=== PATIENT | male | born 1955 | race Caucasian/White ===

== ENCOUNTER 2018-07-05 10:46 | Outpatient (CLI) | payer BC, SELFPAY ==
[2018-07-05 13:19] LABS: ALT 39 U/L (12-78); AST 29 U/L (15-37); Albumin 4.1 g/dL (3.4-5.0); Alkaline Phosphatase 66 U/L (46-116); BUN 16 mg/dL (7-18); Bilirubin, Total 0.4 mg/dL (0.2-1.0); CREATININE 1.06 mg/dL (0.70-1.30); Calcium 9.3 mg/dL (8.5-10.1); Chloride 103 mmol/L (98-107); Cholesterol 178 mg/dL (50-200); Glucose 101 mg/dL (70-100); HDL Cholesterol 59 mg/dL (40-60); LDL CHOLESTEROL 104 mg/dL (<100); Potassium 4.4 mmol/L (3.5-5.1); Sodium 137 mmol/L (136-145); Triglyceride 104 mg/dL (30-150)
== END 2018-07-05 11:06 ==
LOC: LBO 11:54 → LOS 11:56
PROVIDERS: PCP Family Medicine; Visit Provider Family Medicine
DX: Z00.00 Encounter for general adult medical examination without abnormal findings (principal); Z13.220 Encounter for screening for lipoid disorders; Z13.228 Encounter for screening for other metabolic disorders
CPT/HCPCS: 36415; 80053; 80061; 83721

== ENCOUNTER 2018-11-05 16:09 | Emergency (ER) | payer BC, SELFPAY ==
[2018-11-05] VITALS (24 sets, daily range): BP systolic 148–180; BP diastolic 68–108; PULSE 68–97; RESP 15–18; TEMP 36.6–37; O2SAT 89–98
--- NOTE | 2018-11-05 16:48 | DI.CT_ITS ---
SYMPTOM/DIAGNOSIS: KICKED BY HORSE RT SIDE, PAIN CHEST, ABDOMEN AND PELVIC CT: CT scan of the chest, abdomen and pelvis was performed following the uneventful administration of intravenous contrast material. No priors for comparison. ABDOMEN AND PELVIS: The liver, spleen, pancreas, gallbladder, bile ducts and adrenal glands are unremarkable. The portal and superior mesenteric veins are patent. The kidneys are unremarkable. The urinary bladder is intact. The reproductive organs are unremarkable. The bowel is unremarkable. There is no evidence of an acute appendicitis. The abdominal aorta is of normal caliber. No aneurysmal dilatation is seen. No abdominal or pelvic adenopathy, ascites or pneumoperitoneum is present. No fractures are identified. Degenerative changes are seen in the spine. IMPRESSION: No evidence of abdominal or pelvic organ injury. No acute fracture is seen. CHEST: There are a few tiny hypodensities in the thyroid gland. These may be further evaluated with thyroid ultrasound on a non emergent basis. The thoracic aorta is intact and normal caliber. Heart size is within normal limits. No significant pericardial effusion is seen. No significant thoracic adenopathy is present. No pleural effusion or pneumothorax is identified. No infiltrates are seen. There is a nondisplaced fracture involving the lateral aspect of the right eighth rib. No other fracture is seen. Degenerative changes are seen in the spine. IMPRESSION: Nondisplaced fracture involving the lateral aspect of the right eighth rib.
--- NOTE | 2018-11-05 16:53 | ED.GENADUL_ITS ---
Discharge Plan Disposition Patient Disposition: HOME Condition: Fair Discharge Details Chief Complaint: Chest/Rib Clinical Impression: Fracture of rib, Allergic reaction Primary Care Provider: Gay Rg ED Provider: Cammy Nichols Home Meds and New Rx's Prescriptions: New prednisone 20 mg tablet 40 mg PO DAILY Qty: 8 RF: 0 Continued glucosamine-chondroitin 900 mg tablet See Patient Comments PO BID RF: 0 Proventil HFA 90 mcg/actuation HFA aerosol inhaler 2 puff IH Q4H PRN (Reason: shortness of breath or wheezing) Qty: 8.5 RF: 4 amlodipine 10 mg tablet 10 mg PO DAILY Qty: 90 RF: 4 doxazosin 1 mg tablet 1 mg PO DAILY Qty: 90 RF: 4 ibuprofen 200 MG tablet 2 - 3 tab PO PRN RF: 0 multivitamin [Daily Multi-Vitamin] 1 EACH tablet 2 ea PO DAILY RF: 0 omeprazole 20 MG tablet,delayed release (DR/EC) 20 mg PO DAILY RF: 0 fluorometholone 15 ML drops,suspension 1 drp OU DAILY PRNRF: 0 metoprolol succinate 200 mg tablet extended release 24 hr 200 mg PO DAILY Qty: 90 RF: 4 Discharge Instructions Instructions: Rib Fracture (ED), General Allergic Reaction (ED) Additional Instructions: You have fractured your #8 rib on the right side. Encourage hydration. Encourage deep breathing. Use incentive spirometer as advised by nursing staff. Tylenol and/or Motrin as needed for discomfort. Splinting as discussed if coughing. You may try topical options such as Salonpas patches or Lidoderm patches to help with discomfort. You appear to have had reaction to Morphine while here. Please take steroids as prescribed, even if symptoms do not recur please take entire course. If you d evelop fevers/chills, difficulty breathing, rash, shortness of breath or other new/worsneing symptoms please seek care urgently once again. Please follow up with primary care at the end of the week for reevaluation, call tomorrow morning to schedule appointment. Referrals: Gay Rg MD, [place] [Primary Care Provider] - Medical Decision Making Patient is 63-year-old male, accompanied by his , chief complaint of getting kicked in the right side of his lower ribs by a horse. He reports that he was trying to eat a horse outside and her suddenly kicked back striking him in the side. He states that he was immediately short of breath and noted to take him a while to get up from the ground secondary to the shortness of breath. Reports that this happened approximately 4 hours prior to arrival. Denies any abdominal pain. Denies any syncope or loss of consciousness. Denies any headache. Denies any pain in his neck or his back. Denies other injury at the time of the incident. He reports that he was able to continue with his chores but then when his saw her uncomfortable here. She advised to bring him to the emergency department. He is taking 400 mg of ibuprofen since the injury with little relief. Reports that the shortness of breath is improving On exam, patient does appear uncomfortable and is guarding the right side. His lungs are clear. I do feel swelling over the right inferior ribs. He also endorses pain with palpation over the right upper quadrant. No CVA tenderness. Full range of motion of the neck, no midline tenderness over the spine. No respiratory distress. Patient has history of right shoulder surgery, low back pain, cervical spondylosis, GERD, hypertension. He endorses chronic weakness in the right upper extremity which she associates with his previous shoulder surgeries but denies any acute change in this or any acute pain in the right upper extreme Given the mechanism of injury, I feel that imaging is appropriate, we will obtain CT of the patient's chest, abdomen and pelvis. Discussed this plan with the patient who is in agreement FINDINGS: Lungs: Normal. No consolidation. No masses. Pleural space: Normal. No pneumothorax. No pleural effusion. Heart: Normal. No cardiomegaly. No pericardial effusion. Aorta: Normal. No aortic aneurysm. Lymph nodes: Unremarkable. No enlarged lymph nodes. Bones/joints: Nondisplaced fracture the lateral aspect of the right eighth rib. Soft tissues: Unremarkable. IMPRESSION: Nondisplaced fracture the lateral aspect of the right eighth rib. FINDINGS: Lower thorax: No acute findings. ABDOMEN: Liver: Unremarkable. No mass. Gallbladder and bile ducts: Unremarkable. No calcified stones. No ductal dilation. Pancreas: Unremarkable. No ductal dilation. Spleen: Unremarkable. No splenomegaly. Adrenals: Normal. No mass. Kidneys and ureters: Unremarkable. No stones. No hydronephrosis. Stomach and bowel: Unremarkable. No obstruction. No mucosal thickening. Appendix: No evidence of appendicitis. PELVIS: Bladder: Unremarkable as visualized. Reproductive: Unremarkable as visualized. ABDOMEN and PELVIS: Intraperitoneal space: Unremarkable. No free air. No significant fluid collection. Bones/joints: Degenerative spondylosis of the lumbar spine. No acute fracture. Soft tissues: Unremarkable. Vasculature: Unremarkable. No abdominal aortic aneurysm. Lymph nodes: Unremarkable. No enlarged lymph nodes. IMPRESSION: No acute abnormality. AFter coming back from CT, patient is shaky. No rash, no itching, no SOB, no CP. States he feels warm but is objectively shaky. Concerned for possible reaction to dye vs. morphine. Will give IV Benadryl and continue to monitor. Face is very flushed, lungs are clear, no rash. While nurses was prepping to give patient his Benadryl, he began appearing red, more shaky, diaphoretic and afraid. Concerned for worsening reaction. Will give SC epi. Patient improved shortly after epi. Giving zantac and solu-medrol. Discussed symptoms further with patient. He reports that it began just prior ot CT, this makes me more concerned it was the morphine vs. the IV contrast. Advised against this in the future. Patient appears very fatigued, likely associated with Benadryl. He is no longer shaky, skin has returned to baseline. O2 dropped when patient began to fall asleep to 88% RA. He denies SOB, lungs remain clear. Placed on 1LNC with good response. Lidoderm patch applied to hlep with rib discomfort. Patient able to come off of NC, O2 at 94% RA. He is requesting discharge. Will keep in department to continue to monitor after reaction. Nursing staff will teach IS usage. Patient monitored after reaction, no signs of recurrence. He lives locally, they are able to return with new/worsening symptoms. He iwll continue with prednisone as prescribed. Advised close f/u with PCP, will call tomorrow. Tylenol and/or Motrin as needed for discomfort, discussed topical options to help with discomfort. Discussed care for rib fracture and when to seek care for this. All of their questions and concerns were addressed, they are in agreement with this plan. HPI General Mode of arrival: ambulatory . Date/Time Provider Initiated Documentation: 11/05/18 16:34 . Limitations to Documentation: no limitations . Information obtained by: patient and family . History of Present Illness 63 year old M presents to the emergency department with the chief complaint of right sided chest pain, described as moderate, Quality is described as aching, and is localized to the chest. Patient abdomen. Patient started experiencing this hour(s) (4.5) and it has been constant. Immobilization improves symptom(s), Movement worsens symptoms and Other factors that worsen symptoms (deep inspiration) . Patient notes shortness of breath; denies cough, fever/chills, headaches, nausea/vomiting, rash, syncope and weakness. Patient did receive the following treatments prior to arrival, NSAID Related Data Home Medications Medication Instructions Recorded Confirmed ibuprofen 2 - 3 tab PO PRN 04/04/13 11/05/18 multivitamin [Daily Multi-Vitamin] 2 ea PO DAILY 07/17/14 11/05/18 omeprazole 20 mg PO DAILY 07/17/14 11/05/18 fluorometholone 1 drp OU DAILY PRN drp 05/16/16 11/05/18 albuterol sulfate HFA 90 2 puff IH Q4H PRN #8.5 gm 07/05/18 11/05/18 mcg/actuation aerosol inhaler amlodipine 10 mg tablet 10 mg PO DAILY #90 tab 07/05/18 11/05/18 antiarthritic combination no.2 900 See Rx Instructions PO BID tab 07/05/18 11/05/18 mg tablet doxazosin 1 mg tablet 1 mg PO DAILY #90 tab 07/05/18 11/05/18 metoprolol succinate ER 200 mg 200 mg PO DAILY #90 tab 10/18/18 11/05/18 tablet,extended release 24 hr prednisone 40 mg PO DAILY #8 tab 11/05/18 Previous Rx's Medication Instructions Recorded albuterol sulfate HFA 90 2 puff IH Q4H PRN #8.5 gm 07/05/18 mcg/actuation aerosol inhaler amlodipine 10 mg tablet 10 mg PO DAILY #90 tab 07/05/18 doxazosin 1 mg tablet 1 mg PO DAILY #90 tab 07/05/18 metoprolol succinate ER 200 mg 200 mg PO DAILY #90 tab 10/18/18 tablet,extended release 24 hr prednisone 40 mg PO DAILY #8 tab 11/05/18 Allergies Allergy/AdvReac Type Severity Reaction Status Date / Time morphine Allergy Shaking Unverified 11/05/18 18:34 General Stated Complaint: Chest/Rib LULA: 2 Review of Systems Constitutional Reports as per HPI, Denies chills, Denies fatigue, Denies fever(s), Denies headache(s) and Denies weakness Eyes Reports as per HPI, Denies blurry vision, Denies change in vision and Denies loss of vision ENT Denies headache(s) Cardiovascular Reports as per HPI, Denies chest pain and Denies dyspnea Respiratory Denies dyspnea Gastrointestinal Reports as per HPI, Denies abdominal pain, Denies nausea and Denies vomiting Genitourinary Reports as per HPI and Denies urinary incontinence Musculoskeletal Reports as per HPI Integumentary/Breasts Reports as per HPI and Denies rash Neurologic Denies headache(s), Denies loss of vision and Denies weakness Endocrine Denies fatigue [facility] Medical History Cervical spondylosis GERD (gastroesophageal reflux disease) Hypertension Low back pain Rotator cuff syndrome of right shoulder Surgical History PROCEDURES Rotator Cuff Repair Spermatocelectomy Family History Mother Scleroderma Raynauds disease Celiac disease Father Gout Essential hypertension Seizures Stroke Sister Hand-Albino?ller-[employer] disease Neuromyelitis optica Essential hypertension DVT (deep venous thrombosis) Myasthenia gravis Pulmonary embolus Eosinophilic granuloma Grandfather AAA (abdominal aortic aneurysm) Grandfather Essential hypertension Personal history of malignant neoplasm Stroke Grandmother Personal history of malignant neoplasm Grandmother Myocardial infarction Sister No problems noted. Sister No problems noted. Maternal Aunt Personal history of malignant neoplasm Social History household members: spouse current occupational status: employed current occupation: [employer] pets and animals: Yes pets and animals: cat(s), dog(s) and horse(s) frequency: daily Smoking/Tobacco Use Status: Former Tobacco Use pack-years: 30 how long ago did patient quit smokin YRS AGO second hand exposure: No alcohol intake: current alcohol intake frequency: a few times a week substance use type: does not use hailee/protestant: No preference special hailee needs: No Exam Const General: cooperative, healthy appearing, comfortable, no acute distress, well developed and well groomed Nutritional Appearance: average body habitus and well nourished Orientation: alert, awake and oriented x3 [facility] Head: normal to inspection, no palpable skull fracture, normocephalic and atraumatic Ears: hearing grossly normal bilaterally General nose exam: external nose normal Eyes General: appearance normal, both eyes and all related structures Visual Cota: normal visual cota by confrontation Alignment and Position: alignment normal Periorbital: periorbital findings normal Eyelids: eyelids normal Conjunctivae: conjunctivae normal Pupils: PERRL EOM: EOM intact bilaterally Neck Neck: normal visual inspection, full ROM, no lymphadenopathy, no meningeal signs, trachea midline and supple Chest Chest: abnormal palpation of chest wall (patient has localized swelling along the right lateral wall, between 7,8,9), no crepitus, localized rib tenderness with anteroposterior compression (over area of swelling as above), tenderness and No rash Resp Effort & Inspection: normal respiratory effort, able to speak in complete sentences and no respiratory distress Auscultation: clear to auscultation bilaterally, no rales, no rhonchi and no wheezes Cardio Rate: regular rate Rhythm: regular rhythm Heart Sounds: S1 normal and S2 normal GI Inspection: normal to inspection, no abdominal wall ecchymosis, no edema and non-distended Palpation: soft, no hepatosplenomegaly, not firm, no guarding, no pulsatile masses, not rigid and nontender Auscultation: normal bowel sounds Back/Spine/Pelvis Back: no CVA tenderness Cervical Spine: normal cervical lordosis and cervical ROM normal Thoracic/Lumbar Spine: thoracic and lumbar spine normal to inspection, thoraco- lumbar ROM normal, No thoraco-lumbar ROM limited, No thoraco-lumbar spasm and No thoracic spinal tenderness Pelvis: no pain with anterior-posterior compression and no pain with lateral compression Skin General skin exam: no rashes or lesions noted Lesions: no lesions Rashes: no rashes Trauma: no lacerations or abrasions Wounds: no wounds Neuro General: alert, awake, oriented x3, gait normal, tone normal and moves all extremities Cranial Nerves: CN's II-XI intact bilaterally Cognition: normal cognition Speech: speech normal Gait: normal gait Motor: muscle tone normal throughout and strength 5/5 throughout Sensory Exam: no sensory deficits noted (no saddle paresthesias) Extrem General: normal to inspection, full ROM, normal capillary refill, no pedal edema and no calf tenderness Psych Appearance: grossly normal and well kempt Mental Status: mental status grossly normal Speech and Movement: speech and movement normal Course Vital Signs Temperature 36.6 C 11/05/18 16:15 Pulse 68 11/05/18 16:15 Respiratory Rate 15 11/05/18 16:15 Blood Pressure 163/68 H 11/05/18 16:15 Pulse Oximetry 98 11/05/18 16:15 Temperature 36.6 C 11/05/18 16:15 Temperature Source Temporal Artery Scan 11/05/18 16:15 Pulse 68 11/05/18 16:15 Respiratory Rate 15 11/05/18 16:15 Respiratory Effort Non-Labored 11/05/18 16:22 Respiratory Depth Normal 11/05/18 16:22 Respiratory Pattern Normal 11/05/18 16:22 Blood Pressure 163/68 H 11/05/18 16:15 Blood Pressure Position Sitting 11/05/18 16:15 Pulse Oximetry 98 11/05/18 16:15 Oxygen Delivery Method Room Air 11/05/18 16:15 Oxygen Flow Rate 0 11/05/18 16:15 Pain Level 7 11/05/18 16:22
[2018-11-05] MEDS: Lactated Ringers 1,000 ML 1000 ML IV ×2 (17:10→18:28)
[2018-11-05] MEDS: MORPHine 10 MG/ML VIAL 2 MG IVP (17:16)
[2018-11-05 17:19] LABS: Abs Immature Grans 0.02 k/cumm (0.0-0.09); Absolute Basophil Count 0.04 k/cumm (0.0-0.2); Absolute Eosinophil Count 0.19 k/cumm (0.0-0.7); Absolute Lymphocyte Count 1.39 k/cumm (1.2-3.4); Absolute Monocyte Count 0.81 k/cumm (0.11-0.7); Absolute Neutrophil Count 9.23 k/cumm (1.2-6.7); Basophils % 0.3; Eosinophils % 1.6; HCT 45.3 % (40.0-50.0); HGB 15.7 g/dL (13.5-17.5); Immature Grans % 0.2; Lymphocytes % 11.9; Mean Corp. HGB Concentration 34.7 g/dL (32.0-36.0); Mean Corpuscular Volume 86.6 fL (80-95); Mean Platelet Volume 9.4 fL (8.0-11.0); Monocytes % 6.9; Neutrophils % 79.1; Platelet Count 267 x1000/uL (130-400); RBC 5.23 m/cumm (4.50-6.00); RBC Distribution Width 13.7 % (11.8-14.1); White Blood Cell Count 11.67 k/cumm (4.4-10.8)
[2018-11-05 17:32] LABS: ALT 57 U/L (12-78); AST 37 U/L (15-37); Albumin 4.2 g/dL (3.4-5.0); Alkaline Phosphatase 75 U/L (46-116); Anion Gap 10.7 mmol/L (3-11); BUN 19 mg/dL (7-18); Bilirubin, Total 0.2 mg/dL (0.2-1.0); CO2 26.3 mmol/L (21.0-32.0); CREATININE 1.34 mg/dL (0.70-1.30); Calcium 9.6 mg/dL (8.5-10.1); Chloride 104 mmol/L (98-107); Estimated GFR 53.67 (mL/min/1.73m2); Glucose 133 mg/dL (70-100); Magnesium 1.7 mg/dL (1.8-2.4); Potassium 4.2 mmol/L (3.5-5.1); Sodium 141 mmol/L (136-145); Total Protein 7.6 g/dL (6.4-8.2); Troponin I 0.02 ng/mL (0.00-0.06)
[2018-11-05 17:35] LABS: Prothrombin Time 10.1 sec (9.3-11.0)
[2018-11-05] MEDS: Omnipaque 350 MG/ML 100 ML BTL IJ (17:52)
[2018-11-05 17:55] LABS: PTT Activated 22.8 sec (21.0-31.4)
--- NOTE | 2018-11-05 18:11 | DI.VRAD_ITS ---
EXAM: CT Chest With Contrast EXAM DATE/TIME: 11/05/2018 4:49 PM CLINICAL HISTORY: 63 years old, male; Injury or trauma; Injury history: Horse kicked r side, rib pain; Initial encounter; Blunt; Ruq; Blunt trauma (contusions or hematomas) TECHNIQUE: Axial computed tomography images of the chest with intravenous contrast. Coronal and sagittal reformatted images were created and reviewed. COMPARISON: No relevant prior studies available. FINDINGS: Lungs: Normal. No consolidation. No masses. Pleural space: Normal. No pneumothorax. No pleural effusion. Heart: Normal. No cardiomegaly. No pericardial effusion. Aorta: Normal. No aortic aneurysm. Lymph nodes: Unremarkable. No enlarged lymph nodes. Bones/joints: Nondisplaced fracture the lateral aspect of the right eighth rib. Soft tissues: Unremarkable. IMPRESSION: Nondisplaced fracture the lateral aspect of the right eighth rib. EXAM: CT Abdomen and Pelvis With Contrast EXAM DATE/TIME: 11/05/2018 4:49 PM CLINICAL HISTORY: 63 years old, male; Injury or trauma; Injury history: Horse kicked r side, rib pain; Initial encounter; Blunt; Ruq; Blunt trauma (contusions or hematomas) TECHNIQUE: Axial computed tomography images of the abdomen and pelvis with intravenous contrast. Coronal and sagittal reformatted images were created and reviewed. COMPARISON: No relevant prior studies available. FINDINGS: Lower thorax: No acute findings. ABDOMEN: Liver: Unremarkable. No mass. Gallbladder and bile ducts: Unremarkable. No calcified stones. No ductal dilation. Pancreas: Unremarkable. No ductal dilation. Spleen: Unremarkable. No splenomegaly. Adrenals: Normal. No mass. Kidneys and ureters: Unremarkable. No stones. No hydronephrosis. Stomach and bowel: Unremarkable. No obstruction. No mucosal thickening. Appendix: No evidence of appendicitis. PELVIS: Bladder: Unremarkable as visualized. Reproductive: Unremarkable as visualized. ABDOMEN and PELVIS: Intraperitoneal space: Unremarkable. No free air. No significant fluid collection. Bones/joints: Degenerative spondylosis of the lumbar spine. No acute fracture. Soft tissues: Unremarkable. Vasculature: Unremarkable. No abdominal aortic aneurysm. Lymph nodes: Unremarkable. No enlarged lymph nodes. IMPRESSION: No acute abnormality. Dictated and Authenticated by: Melvin Martínez MD. Ordering:SHIRIN Chawla MD
[2018-11-05] MEDS: diphenhydrAMINE 50 MG/ML VIAL IVP (18:23)
[2018-11-05] MEDS: methylPREDNISolone SUCC 125 MG VIAL IVP (18:44)
--- NOTE | 2018-11-05 18:52 | NUR.NOTE ---
Nursing Note: 1809--returned from DI--shakking--face flushed--denies itching or throat tightnedd--no oral or tongue swelling---thinks it started on way to to DI--Mara notified.
[2018-11-05] MEDS: Lidocaine 5% Patch 1 PATCH TP (20:07)
== END 2018-11-05 21:51 | disposition home or self-care (01) ==
PROVIDERS: Emergency Provider Physician Assistant; PCP Family Medicine
DX: S22.31XA Fracture of one rib, right side, initial encounter for closed fracture (principal); W55.12XA Struck by horse, initial encounter; R61 Generalized hyperhidrosis; R23.2 Flushing; T40.2X5A Adverse effect of other opioids, initial encounter; I10 Essential (primary) hypertension
CPT/HCPCS: 36415; 74177; 80053; 96361; 96365; 96375; 99285; 71260; 83735; 84484; 85025; 85610; 85730; 99284; J0171; J1200; J2270; J2930; J3490

== ENCOUNTER 2018-11-29 00:46 | Outpatient (CLI) | payer BC, SELFPAY ==
--- NOTE | 2018-11-29 11:42 | DI.US_ITS ---
SYMPTOM/DIAGNOSIS: [facility] CT AND XRAY FINDINGS, R93.89 THYROID ULTRASOUND: Comparison is made with chest CT of 11/05/18 which showed a few small thyroid nodules. The right lobe of the thyroid measures 1.1 by 2.2 by 4.4 cm. The left lobe measures 1.6 by 1.3 by 4.5 cm. The overall thyroid echotexture is normal. At the lower pole of the right lobe, there is a 1 by 0.9 by 0.9 cm., circumscribed mixed solid and cystic area without blood flow. No calcifications are seen. A 6 mm. maximal dimension cystic area is seen near the isthmus. A 4 mm. cystic area is seen in the mid left lobe, also likely a small colloid cyst. IMPRESSION: 1 cm. benign appearing nodule of the lower pole of the right lobe of the thyroid. Other small colloid cysts are seen.
== END 2018-11-29 01:06 ==
PROVIDERS: PCP Family Medicine; Visit Provider Family Medicine
DX: R93.89 Abnormal findings on diagnostic imaging of other specified body structures (principal); E04.1 Nontoxic single thyroid nodule
CPT/HCPCS: 76536

== ENCOUNTER 2019-01-10 01:28 | Outpatient (CLI) | payer BC, SELFPAY ==
--- NOTE | 2019-01-10 07:30 | MERGE_ITS ---
*[facility]* *[facility]* [address] [place] [address] Date of study: 01/10/2019 Transthoracic Echocardiography M-mode, complete 2D, complete spectral Doppler, and color Doppler *STUDY CONCLUSIONS* Summary: 1. Left ventricle: The cavity size was normal. Systolic function was normal. The estimated ejection fraction was 55-60%. Diastolic parameters were normal. There was no evidence of elevated ventricular filling pressure by Doppler parameters. 2. Aortic valve: Bicuspid. There was no stenosis. There was moderate regurgitation. Peak velocity (S): 1.6m/sec. Mean gradient (S): 6mm Hg. VTI ratio of LVOT to aortic valve: 0.42. 3. Aortic root: The aortic root was mildly dilated. 4. Ascending aorta: The ascending aorta was normal in size. 5. Mitral valve: There was mild to moderate regurgitation. 6. Left atrium: The atrium was mildly dilated. 7. Right ventricle: The cavity size was normal. Wall thickness was normal. Systolic function was normal. 8. Atrial septum: No defect or patent foramen ovale was identified. 9. Pulmonary arteries: Pulmonary systolic pressure was in the range of 20mm Hg to 30mm Hg. 10. Inferior vena cava: The vessel was patent and normal in size. The respirophasic diameter changes were in the normal range (greater than or equal to 50%), consistent with normal central venous pressure. *PATIENT PRESENTATION* Height: 172.7cm ((68in) ) S/D Pressure: 140 / 77 Weight: 77.1kg ((169.6lb) ) BSA: 1.94m^2 Test start time: 07:40 AM. Test stop time: 08:40 AM. ORDERING Gay Rg REFERRING Gay Rg PERFORMING Unknown PERFORMING [facility] LEGAL PROCESS SPECIALIST RT Betancourt (R)(ROXANA), [facility] *PROCEDURE DATA* Procedure information: The patient was identified by two identifiers. This study was interpreted by [facility]. Pertinent images and digital data are archived for permanent storage and are available for subsequent review. No prior study was available for comparison. Study status: Routine. Transthoracic echocardiography. M-mode, complete 2D, complete spectral Doppler, and color Doppler. A Transthoracic Echocardiogram was performed. Scanning was performed from the parasternal, apical, subcostal, and suprasternal notch acoustic windows. Images were obtained using an [id number] cardiac ultrasound machine. Image quality was good. Study completion: The patient tolerated the procedure well. History: PMH: HANNAH dyspnea. *CARDIAC ANATOMY* Left ventricle: The cavity size was normal. Systolic function was normal. The estimated ejection fraction was 55-60%. The tissue Doppler parameters were normal. Diastolic parameters were normal. There was no evidence of elevated ventricular filling pressure by Doppler parameters. Aortic valve: Bicuspid. Doppler: There was no stenosis. There was moderate regurgitation. VTI ratio of LVOT to aortic valve: 0.42. Valve area (VTI): 1.9cm^2. Indexed valve area (VTI): 1cm^2/m^2. Peak velocity ratio of LVOT to aortic valve: 0.42. Valve area (Vmax): 1.9cm^2. Indexed valve area (Vmax): 1cm^2/m^2. Mean velocity ratio of LVOT to aortic valve: 0.44. Valve area (Vmean): 2cm^2. Indexed valve area (Vmean): 1.1cm^2/m^2. Mean gradient (S): 6mm Hg. Peak gradient (S): 10.5mm Hg. Aorta: Aortic root: The aortic root was mildly dilated. Ascending aorta: The ascending aorta was normal in size. Mitral valve: Doppler: There was no evidence for stenosis. There was mild to moderate regurgitation. Valve area by pressure half-time: 3.8cm^2. Indexed valve area by pressure half-time: 2cm^2/m^2. Left atrium: The atrium was mildly dilated. Atrial septum: No defect or patent foramen ovale was identified. Right ventricle: The cavity size was normal. Wall thickness was normal. Systolic function was normal. Pulmonic valve: Doppler: There was no evidence for stenosis. There was trivial regurgitation. Peak gradient (S): 2.4mm Hg. Tricuspid valve: Doppler: There was mild regurgitation. Pulmonary artery: Poorly visualized. Pulmonary systolic pressure was in the range of 20mm Hg to 30mm Hg. Right atrium: The atrium was normal in size. Pericardium: There was no pericardial effusion. Systemic veins: Inferior vena cava: Well visualized. The vessel was patent and normal in size. The respirophasic diameter changes were in the normal range (greater than or equal to 50%), consistent with normal central venous pressure. Baseline ECG: Sinus bradycardia. Measurements Left ventricle Value Reference LV ID, ED, PLAX (H) 6.1 cm 3.5 - 6.0 LV ID, ES, PLAX (H) 4.4 cm 2.1 - 4.0 LV PW thickness, ED, PLAX 1.1 cm LV end-diastolic volume, 1-p A2C 150 ml LV ejection fraction, 1-p A2C 56 % LV end-diastolic volume, 1-p A4C 111 ml LV ejection fraction, 1-p A4C 54 % LV e', lateral 0.1 m/sec LV E/e', lateral 7 LV e', medial 0.086 m/sec LV E/e', medial 8 LV e', average 0.093 m/sec LV E/e', average 7 Ventricular septum Value Reference IVS thickness, ED, PLAX 1.1 cm LVOT Value Reference LVOT ID, A-P 2.4 cm LVOT area 4.6 cm^2 LVOT peak velocity, S 0.67 m/sec LVOT mean velocity, S 0.52 m/sec LVOT VTI, S 18.2 cm LVOT peak gradient, S 1.8 mm Hg LVOT mean gradient, S 1.2 mm Hg Stroke volume (SV), LVOT DP 84 ml Stroke index (SV/bsa), LVOT DP 43 ml/m^2 Aortic valve Value Reference Aortic valve peak velocity, S 1.6 m/sec Aortic valve mean velocity, S 1.16 m/sec Aortic valve VTI, S 43.0 cm Aortic mean gradient, S 6 mm Hg Aortic peak gradient, S 10.5 mm Hg VTI ratio, LVOT/AV 0.42 Aortic valve area, VTI 1.9 cm^2 Velocity ratio, peak, LVOT/AV 0.42 Aortic valve area, peak velocity 1.9 cm^2 Velocity ratio, mean, LVOT/AV 0.44 Aortic valve area, mean velocity 2 cm^2 Aortic valve area/bsa, mean velocity 1.1 cm^2/m^2 Aorta Value Reference Aortic root ID, ED 4.1 cm Ascending aorta ID, A-P, S 3.3 cm Left atrium Value Reference LA ID, A-P, ES 3.6 cm LA ID/bsa, A-P 1.9 cm/m^2 <=2.2 LA area, ES, A4C 20.7 cm^2 8.8 - 23.4 LA area, ES, A2C 26 cm^2 LA volume/bsa, ES, 1-p A4C 37 ml/m^2 LA volume, ES, 2-p 83 ml LA volume/bsa, ES, 2-p 43 ml/m^2 LA/aortic root ratio 0.88 Mitral valve Value Reference Mitral E-wave peak velocity 0.69 m/sec Mitral A-wave peak velocity 0.6 m/sec Mitral deceleration time 201 ms 150 - 230 Mitral pressure half-time 58 ms Mitral E/A ratio, peak 1.15 Mitral valve area, PHT, DP 3.8 cm^2 Pulmonary veins Value Reference Pulmonary vein peak velocity, S 0.54 m/sec Pulmonary vein peak velocity, D 0.48 m/sec Pulmonary vein velocity ratio, peak, 1.11 S/D Pulmonary vein A-wave reversal peak 0.28 m/sec velocity Tricuspid valve Value Reference Tricuspid regurg peak velocity 2.4 m/sec Tricuspid peak RV-RA gradient 22.5 mm Hg Right atrium Value Reference RA area, ES, A4C 17.3 cm^2 8.3 - 19.5 Pulmonic valve Value Reference Pulmonic peak gradient, S 2.4 mm Hg Legend: (L) and (H) sloane values outside specified reference range. I have personally reviewed the images and have reviewed and edited the reported findings. Electronically signed by Jimi Barclay MD 01/10/2019 10:59
== END 2019-01-10 01:48 ==
PROVIDERS: PCP Family Medicine; Visit Provider Family Medicine
DX: R06.09 Other forms of dyspnea (principal); I35.1 Nonrheumatic aortic (valve) insufficiency; I34.0 Nonrheumatic mitral (valve) insufficiency
CPT/HCPCS: 93306

== ENCOUNTER 2019-01-14 00:21 | Outpatient (CLI) | payer BC, SELFPAY ==
--- NOTE | 2019-01-14 08:30 | ETT_ITS ---
*[facility]* *[facility]* [address] [place] [address] Myocardial Perfusion Imaging - SPECT Rober protocol Date of study: 01/14/2019 *PATIENT PRESENTATION* Height: 172.7cm (68in) Blood Pressure: Weight: 77.3kg (170lb) BSA: 1.94m^2 Referring physician: Gay Rg Ordering physician: Gay Rg Impressions: Normal study after maximal exercise. Summary: 1. Stress ECG conclusions: Garcia treadmill score: 11. This score predicts a low risk of cardiac events. 2. Stress: The target heart rate was achieved. Indication: R06.09. 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 DR. VÁSQUEZ IS CONCERNED WITH PATIENT' S MURMUR AND IS RECOMMENDING HE HAVE A STRESS TEST FOR FURTHER RISK STRATIFICATION. PATIENT DENIES CHEST PAIN UPON ARRIVAL TO TESTING TODAY. SIGNIFICANT PAST MEDICAL HISTORY: GERD. SMOKING STATUS: QUIT 1989. SMOKED FOR 15 YEAR 1 PPD. 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 Risk factors: Family history of coronary artery disease. Hypertension. Dyslipidemia. Cholesterol: 178mg/dl. HDL: 59mg/dl. LDL: 104mg/dl. Triglycerides: 104mg/dl. ALLERGIES: MORPHINE. MEDICATIONS: IBUPROFEN 400-600 MG PRN, MULTIVITAMIN DAILY, OMEPRAZOLE 20 MG DAILY, FLUOROMETHOLONE 1 DROP OU DAILY, ANTIARTHRITIC COMBINATION NO.2 900 MG BID, METOPROLOL SUCCINATE ER 200 MG DAILY, AMLODIPINE 10 MG DAILY, DOSAZOSIN 1 MG DAILY. Imaging Technique: Protocol: Rober protocol. Baseline ECG: SINUS RHYTHM. 64 BPM. Stress protocol: + +---+ + !Stage !HR !BP (mmHg) ! + +---+ + !Baseline supine !64 !128/88 (101)! + +---+ + !Baseline standing !63 !140/90 (107)! + +---+ + !Stage I; 1.7mph, 10degrees; 3 min !87 !146/90 (109)! + +---+ + !Stage II; 2.5mph, 12degrees; 3 min !94 !160/84 (109)! + +---+ + !Stage III; 3.4mph, 14degrees; 3 min!112!164/90 (115)! + +---+ + !Stage IV; 4.2mph, 16degrees; 3 min !133!180/88 (119)! + +---+ + !Peak stress !162! ! + +---+ + !Recovery; 1 min !138!180/84 (116)! + +---+ + !Recovery; 3 min !79 !140/74 (96) ! + +---+ + !Recovery; 6 min !81 !130/70 (90) ! + +---+ + !Recovery; 9 min !83 !130/70 (90) ! + +---+ + * Stress results: STRESS TEST ENDED IN 13 MINUTES DUE TO FATIGUE. NORMAL HEART RATE AND BLOOD PRESSURE REPONSE TO EXERCISE. MAX HEART RATE: 162 104 % OF TARGET HEART RATE ACHIEVED. MET'S: 14.16 RARE PAC IN RECOVERY. NO ANGINA. NO SIGNIFICANT ST SEGMENT CHANGES. FUNCTIONAL CAPACITY: ABOVE AVERAGE. Maximal heart rate during stress was 160bpm (103% of maximal predicted heart rate). The maximal predicted heart rate was 155bpm. The target heart rate was achieved. The rate-pressure product for the peak heart rate and blood pressure was 60857nw Hg/min. Stress ECG: Garcia treadmill score: 11. This score predicts a low risk of cardiac events. Myocardial perfusion: Imaging information: gated. Study data: Jimi Barclay MD supervised and was readily available during the procedure. This study was interpreted by [facility]. Study status: Routine. Consent: The risks, benefits, and alternatives to the procedure were explained to the patient and informed consent was obtained. Procedure: Initial setup. A baseline ECG was recorded. Surface ECG leads and manual cuff blood pressure measurements were monitored. Heart sounds: Normal. Lung sounds: Normal. Treadmill exercise testing was performed using the Rober protocol. Study completion: All catheters inserted during the procedure were removed. The patient tolerated the procedure well and was discharged from the lab. Discharge: The patient left the laboratory in stable condition. Birthdate: Patient birthdate: 1955. Sex: Gender: male. Study date: Study date: 01/14/2019. Study time: 00:01 AM. Electronically signed by Jimi Barclay MD 01/14/2019 17:38
== END 2019-01-14 00:41 ==
PROVIDERS: PCP Family Medicine; Visit Provider Family Medicine
DX: R06.09 Other forms of dyspnea (principal); R01.1 Cardiac murmur, unspecified; K21.9 Gastro-esophageal reflux disease without esophagitis; I10 Essential (primary) hypertension; Z82.49 Family history of ischemic heart disease and other diseases of the circulatory system
CPT/HCPCS: 93017

== ENCOUNTER 2020-01-07 11:58 | Outpatient (CLI) | payer MEDICARE, SELFPAY ==
[2020-01-07 13:31] LABS: ALT 43 U/L (16-63); AST 26 U/L (15-37); Albumin 4.3 g/dL (3.4-5.0); Alkaline Phosphatase 68 U/L (46-116); BUN 19 mg/dL (7-18); Bilirubin, Total 0.4 mg/dL (0.2-1.0); Calcium 9.4 mg/dL (8.5-10.1); Chloride 103 mmol/L (98-107); Glucose 114 mg/dL (74-106); Potassium 4.4 mmol/L (3.5-5.1); Sodium 140 mmol/L (136-145); TSH (W/Ref FT4) 3.75 uIU/mL (0.36-3.74); Total Protein 7.5 g/dL (6.4-8.2); Vitamin B12 720 pg/mL (193-986)
[2020-01-07 13:52] LABS: FREE T4 0.88 ng/dL (0.76-1.46)
[2020-01-08 10:48] LABS: PSA, Diagnostic 4.4 ng/mL (0.0-4.5)
== END 2020-01-07 12:18 ==
PROVIDERS: PCP Family Medicine; Visit Provider Family Medicine
DX: E04.1 Nontoxic single thyroid nodule (principal); I10 Essential (primary) hypertension; K21.9 Gastro-esophageal reflux disease without esophagitis; N40.0 Benign prostatic hyperplasia without lower urinary tract symptoms
CPT/HCPCS: 36415; 80053; 82607; 84153; 84439; 84443

== ENCOUNTER 2020-01-08 07:15 | Outpatient (CLI) | payer MEDICARE, BC, SELFPAY ==
--- NOTE | 2020-01-08 12:15 | DI.US_ITS ---
EXAM: US THYROID CLINICAL HISTORY: thyroid nodule, E04.1. TECHNIQUE: Ultrasound thyroid performed using standard protocol. COMPARISON: No exams were available for comparison FINDINGS: The overall thyroid echogenicity is normal. The right lobe measures 4.0 x 1.0 x 1.7 cm. The left lo be measures 4.2 x 1.2 x 1.7 cm. There has been no significant change in the size or appearance of th e previously noted benign-appearing nodule at the lower pole of the right lobe of the thyroid. A few tiny cysts are seen. IMPRESSION: Stable nodule at the lower pole of the right lobe of the thyroid. DATA REPOSITORY:
== END 2020-01-08 07:35 ==
PROVIDERS: PCP Family Medicine; Visit Provider Family Medicine
DX: E04.1 Nontoxic single thyroid nodule (principal)
CPT/HCPCS: 76536

== ENCOUNTER 2021-01-12 22:30 | Outpatient (REF) | payer MEDICARE, SELFPAY ==
[2021-01-12 21:35] LABS: ALT 47 U/L (16-63); AST 26 U/L (15-37); Albumin 4.6 g/dL (3.4-5.0); Alkaline Phosphatase 77 U/L (46-116); Anion Gap 12.4 mmol/L (3-11); BUN 19 mg/dL (7-18); Bilirubin, Total 0.3 mg/dL (0.2-1.0); CO2 26.6 mmol/L (21.0-32.0); CREATININE 1.1 mg/dL (0.70-1.30); Calcium 9.8 mg/dL (8.5-10.1); Calculated LDL 121 mg/dL (<100); Chloride 103 mmol/L (98-107); Cholesterol 219 mg/dL (<200); Glucose 115 mg/dL (74-106); HDL Cholesterol 54 mg/dL (40-60); Potassium 4.1 mmol/L (3.5-5.1); Sodium 142 mmol/L (136-145); Triglyceride 221 mg/dL (<150)
[2021-01-12 21:57] LABS: Total Protein 7.9 g/dL (6.4-8.2)
== END 2021-01-12 22:31 | disposition home or self-care (01) ==
LOC: LBN 22:30
PROVIDERS: PCP Family Medicine; Visit Provider Family Medicine
DX: I10 Essential (primary) hypertension (principal); N40.0 Benign prostatic hyperplasia without lower urinary tract symptoms
CPT/HCPCS: 80053; 80061; 84153

== ENCOUNTER 2021-10-10 13:45 | Emergency (ER) | payer MEDICARE, SELFPAY ==
[2021-10-10 13:55] VITALS: BP 152/77; PULSE 69; RESP 16; TEMP 37.1; O2SAT 98
--- NOTE | 2021-10-10 14:00 | DI.RAD_ITS ---
Exam(s) XR HAND RT COMPLETE EXAM: XR HAND RT COMPLETE CLINICAL HISTORY: Ring finger injury. TECHNIQUE: 2D digital imaging was performed of the right hand. Three images were obtained. AP, late ral and oblique views were obtained. COMPARISON: CR LEFT HAND COMPLETE from 10/15/2013 FINDINGS: BONES: No acute fracture is present. No bony destructive lesion is seen. JOINTS: There is an anterior dislocation of the PIP joint of the right ring finger. Degenerative evangelina nges particularly noted at the DIP joint of the right middle finger. SOFT TISSUE: Soft tissue swelling of the right ring finger. IMPRESSION: Anterior dislocation of the PIP joint of the right ring finger. DATA REPOSITORY: RADIATION DOSE DELIVERED:
--- NOTE | 2021-10-10 14:42 | ED.GENADUL_ITS ---
Discharge Plan Disposition Patient Disposition: HOME Condition: Improving Discharge Details Clinical Impression: Dislocation closed, finger Primary Care Provider: Gay Rg ED Provider: Roberto Nicolas Home Meds and New Rx's Prescriptions: Continued fluticasone propionate 50 mcg/actuation spray,suspension 2 spray intranasal DAILY Qty: 16 RF: 5 Glucosamine/Jb/MSM See Rx Instructions PO TID RF: 0 amlodipine 10 mg tablet 10 mg PO DAILY Qty: 90 RF: 4 metoprolol succinate 200 mg tablet extended release 24 hr 200 mg PO DAILY Qty: 90 RF: 4 ibuprofen 200 MG tablet 2 - 3 tab PO PRN RF: 0 multivitamin [Daily Multi-Vitamin] 1 EACH tablet 2 ea PO DAILY RF: 0 omeprazole 20 MG tablet,delayed release (DR/EC) 20 mg PO DAILY RF: 0 fluorometholone 15 ML drops,suspension 1 drp OU BID RF: 0 doxazosin 2 mg tablet 1 mg PO BID RF: 0 Discharge Instructions Instructions: Closed Reduction (ED), Finger Dislocation (ED) Additional Instructions: Your finger was dislocated and reduced without difficulty. Rest, elevate, cool compresses every 2 hours for 20 minutes. [id number] Tylenol as directed for discomfort. Wear splint until reevaluation with orthopedics, I have placed you on the orthopedic list, please contact the office tomorrow. Watch for new or worsening symptoms and return to the ER for any concerns Referrals: Danny Lo MD [ [facility] STAFF PHYSICIAN] - Discharge Data Discharge Date/Time-TO BE ENTERED AT DEPARTURE: 10/10/21 15:40 Medical Decision Making 66-year-old gentleman presents with a right fourth finger injury, clinically concerned for dislocation versus fracture. Will obtain x-ray. X-ray with dislocation. Finger was reduced without difficulty, patient tolerated well. Splint applied. Patient placed on the orthopedic list. Standard discharge and return precautions provided. This documentation was generated using [employer] system, please disregard any oddities of phrase or misspellings. Medical Records Medical records reviewed: Yes I reviewed the patient's medical records. Imaging Data Radiologic Study: Attestation: I personally reviewed and interpreted this imaging study as follows: Radiologist's impression: PROCEDURE INFORMATION: Exam: XR Right Hand Exam date and time: 10/10/2021 2:15 PM Age: 66 years old Clinical indication: Injury or trauma; Other: Ring finger injury pulled by horse rain; Sprain or strain; Hand; Right TECHNIQUE: Imaging protocol: XR Right hand. Views: 3 or more views. COMPARISON: US RIGHT EXTREMITY ULTRASOUND ([id number]) 12/12/2014 2:56 PM FINDINGS: Bones/joints: Minimal osteoarthritic changes. The 4th digit middle phalanx demonstrates volar subluxation in relation to the proximal phalanx. No definite acute fracture. Soft tissues: Unremarkable. IMPRESSION: Volar subluxation of the 4th digit middle phalanx in relation to the proximal phalanx Radiologic Study #2: Attestation: I personally reviewed and interpreted this imaging study as follows: Imaging: X-Ray Radiologist's impression: PROCEDURE INFORMATION: Exam: XR Right Hand Exam date and time: 10/10/2021 3:15 PM Age: 66 years old Clinical indication: Other: Post reduction TECHNIQUE: Imaging protocol: XR Right hand. Views: 3 or more views. COMPARISON: CR XR HAND RT COMPLETE 10/10/2021 2:41 PM FINDINGS: Bones/joints: The 4th digit appears anatomically aligned. No acute fracture. Soft tissues: Unremarkable. IMPRESSION: 4th digit now anatomically aligned. HPI General Mode of arrival: ambulatory . Date/Time Provider Initiated Documentation: 10/10/21 14:14 . Limitations to Documentation: no limitations . Information obtained by: patient . HPI Narrative: This is a 66-year-old gentleman, [id number], presenting to the ER for evaluation of a right ring finger injury that he sustained a few hours ago while running a horse out. He states the horse moved quickly pulling the broken his hand. He denies any other injury. Denies any numbness, tingling, weakness. Has not taken any medication for his symptoms. Pain is a mild ache at rest but worse with movement. Related Data Home Medications Medication Instructions Recorded Confirmed ibuprofen 2 - 3 tab PO PRN 04/04/13 10/10/21 multivitamin [Daily Multi-Vitamin] 2 ea PO DAILY 07/17/14 10/10/21 omeprazole 20 mg PO DAILY 07/17/14 10/10/21 fluorometholone 1 drp OU BID drp 05/16/16 07/15/21 Glucosamine/Jb/MSM See Rx Instructions PO TID 01/07/20 07/15/21 amlodipine 10 mg tablet 10 mg PO DAILY #90 tab 01/12/21 10/10/21 metoprolol succinate 200 mg 200 mg PO DAILY #90 tab 01/12/21 10/10/21 tablet,extended release 24 hr fluticasone propionate 50 2 spray INTRANASAL DAILY #16 g 07/15/21 07/15/21 mcg/actuation nasal spray,suspension doxazosin 1 mg PO BID 10/10/21 10/10/21 Previous Rx's Medication Instructions Recorded amlodipine 10 mg tablet 10 mg PO DAILY #90 tab 01/12/21 metoprolol succinate 200 mg 200 mg PO DAILY #90 tab 01/12/21 tablet,extended release 24 hr fluticasone propionate 50 2 spray INTRANASAL DAILY #16 g 07/15/21 mcg/actuation nasal spray,suspension Allergies Allergy/AdvReac Type Severity Reaction Status Date / Time morphine Allergy Shaking Unverified 10/10/21 14:00 General Stated Complaint: Orthopedic LULA: 4 Review of Systems Constitutional Constitutional: Denies weakness Musculoskeletal Musculoskeletal: Reports deformity, Reports arthralgias, Denies numbness, Reports stiffness and Denies tingling Integumentary/Breasts Skin/Breast: Denies erythema Neurologic Neurologic: Denies numbness, Denies tingling and Denies weakness PFSH All Active Problems Dislocation closed, finger (Acute) Post-nasal discharge (Acute) Loss of smell (Acute) Benign prostatic hyperplasia (Chronic) Bicuspid aortic valve (Acute) Thyroid nodule (Acute) GERD (gastroesophageal reflux disease) (Acute 07/17/14) Essential hypertension (Acute 09/30/13) Dysphasia (Acute) Alcohol ingestion of more than two drinks per day (Acute 01/13/15) Actinic keratosis (Acute) Medical History Annual physical exam (04/27/15) Cellulitis and abscess of hand 08/30/17 Cellulitis and abscess of hand (08/30/17) Cervical spondylosis Cervical spondylosis (06/27/12) S/P SURGERY Crushing injury of right leg WITH FOOT DROP MARKED ECCHYMOSIS GERD (gastroesophageal reflux disease) Hypertension Low back pain Low back pain 1997 INJURY; L SCIATICA; MRI: L-5 S-1 DISC Rotator cuff syndrome of right shoulder Spermatocele s/p surgery (Left) Spermatocele Tobacco use disorder Tobacco use disorder Unilateral inguinal hernia right Unilateral inguinal hernia Surgical History PROCEDURES UNIL FEMOR TIANA REP NEC, 10/07/08 right; Dr. Carrizales Rotator Cuff Repair 2 (R) 1 (L) S/P hernia repair 10/30/07 right; Dr. Dora English Spermatocelectomy (L) Status post hernia repair Family History Mother , BOWEL OBSTRUCTION at age 74. Scleroderma Raynauds disease Celiac disease Father , STROKE COMPLICATIONS at age 84. 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 Myocardial infarction Sister No problems noted. Sister No problems noted. Maternal Aunt Breast cancer Social History Smoking/Tobacco Use Status: Former Tobacco Use tobacco type: cigarettes Quit Date: 10/30/87 Pack-years: 30 Tobacco: How many years used: 30 Second Hand Exposure: Yes Smoking risk assessment performed?: Yes Alcohol Intake: current Alcohol Intake frequency: 0-2 drinks per day Alcohol type: wine Drug use: Never Substance use type: does not use Caregiver/Support person: No Household members: significant other Housing: house Communication Needs: None Do you need help understanding health information?: Rarely current occupation: [employer] Pets and animals: Yes Pets and animals: cat(s), dog(s) and horse(s) Sexually active: No Do you think of yourself as: straight/heterosexual Current gender identity: male What is your relationship status?: living with partner How often do you talk on the phone with friends or family?: twice per week How often do you get together with friends or relatives?: never How often do you attend worship or latter day services?: decline to answer Do you belong to any clubs or organized social groups?: no Panel score (0-1 are the most socially isolated patients): 1 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 Duration: decline to answer Frequency: daily Sonja/Shinto: None Special sonja needs: No Seatbelt use: always Drive intox or ride w/intox transit bus driver: No Do you feel safe at home: Yes Do you feel safe in your relationship?: Yes Exam Const General: cooperative, healthy appearing, comfortable and no acute distress Orientation: alert and awake HENMT Head: normal to inspection, normocephalic and atraumatic Eyes General: appearance normal, both eyes and all related structures Conjunctivae: conjunctivae normal Neck Neck: normal visual inspection, trachea midline and supple Resp Effort & Inspection: normal respiratory effort and able to speak in complete sentences Cardio Rate: regular rate Rhythm: regular rhythm Skin General skin exam: no rashes or lesions noted Neuro General: patient alert, patient awake, moves all extremities and no focal motor deficits Cognition: normal cognition Speech: speech normal Gait: normal gait Sensory Exam: no sensory deficits noted Extrem General: capillary refill normal Other: Right hand, fourth digit, neuro, vascular, tendon is intact. There is diffuse swelling, tenderness, mild ecchymosis. There is no obvious deformity at the PIP joint. Limited range of motion at that joint. Normal capillary refill. Skin is intact. The rest of the hand is unremarkable Psych Appearance: grossly normal Mental Status: mental status grossly normal Course Vital Signs Vital signs: Vital Signs Temperature 37.1 C 10/10/21 13:55 Pulse 69 10/10/21 13:55 Respiratory Rate 16 10/10/21 13:55 Blood Pressure 152/77 H 10/10/21 13:55 Pulse Oximetry 98 10/10/21 13:55 Temperature 37.1 C 10/10/21 13:55 Temperature Source Skin 10/10/21 13:55 Pulse 69 10/10/21 13:55 Respiratory Rate 16 10/10/21 13:55 Respiratory Effort 10/10/21 14:04 Blood Pressure 152/77 H 10/10/21 13:55 Blood Pressure Position Sitting 10/10/21 13:55 Pulse Oximetry 98 10/10/21 13:55 Oxygen Delivery Method Room Air 10/10/21 13:55 Oxygen Flow Rate 0 10/10/21 13:55 Pain Level 3 10/10/21 13:55 Procedures Orthopedic Joint Reduction Joint #1: Time Out Performed: Yes Side: right Joint Reduction Location: finger Analgesia: digital block Local Anesthesia: Lidocaine 1%, Bupivicaine 0.25% and other anesthetic (Mkhk-eos-alnd mixture) Amount of anesthesic used (mL): 5 Technique used: traction/counter-traction Post-reduction neuro exam: intact Post-reduction vascular: intact Post Reduction X-Ray Obtained: Yes Post Reduction X-Ray Results: reduced Splint Applied: Yes Patient Tolerated Procedure: well PAWSS Have you Been Recently Intoxicated or Drunk Within the Last 30 days?: No Have you Ever Experienced Previous Episodes of Alcohol Withdrawal?: No Have you ever Experienced Withdrawal Seizures?: No Have you ever Experienced Delirium Tremens(DT)s?: No Have you ever undergone Alcohol Rehabilitation Treatment (i.e, inpt ot outpatient treatment programs)?: No Have you ever Experienced Blackouts?: No Have you ever Combined Alcohol with other Downers within the last 90 days?: No Have you ever Combined Alcohol with any other Substance of Abuse during the last 90 days?: No Positive Blood Alcohol level on Presentation? [PCS.BAL]: No Evidence of Increased Autonomic Activity (i.e. HR>120, tremor, sweating, agitation, nausea)?: No Result: 0
--- NOTE | 2021-10-10 15:00 | DI.RAD_ITS ---
Exam(s) XR HAND RT COMPLETE EXAM: XR HAND RT COMPLETE CLINICAL HISTORY: post reduction. TECHNIQUE: 2D digital imaging was performed of the right hand. Three images were obtained. AP, late ral and oblique views were obtained. COMPARISON: CR,XR XR HAND RT COMPLETE from 10/10/2021 FINDINGS: BONES: No acute fracture is present. No bony destructive lesion is seen. JOINTS: No dislocation present. There has been successful reduction of the PIP dislocation of the 4th finger. SOFT TISSUE: Normal. IMPRESSION: Normal alignment of the 4th finger. Successful reduction of the PIP joint. DATA REPOSITORY: RADIATION DOSE DELIVERED:
[2021-10-10] MEDS: Bupivacaine 0.5% Pres-Free 30 ML VIAL (15:10)
--- NOTE | 2021-10-10 15:17 | DI.VRAD_ITS ---
PROCEDURE INFORMATION: Exam: XR Right Hand Exam date and time: 10/10/2021 2:15 PM Age: 66 years old Clinical indication: Injury or trauma; Other: Ring finger injury pulled by horse rain; Sprain or strain; Hand; Right TECHNIQUE: Imaging protocol: XR Right hand. Views: 3 or more views. COMPARISON: US RIGHT EXTREMITY ULTRASOUND ([id number]) 12/12/2014 2:56 PM FINDINGS: Bones/joints: Minimal osteoarthritic changes. The 4th digit middle phalanx demonstrates volar subluxation in relation to the proximal phalanx. No definite acute fracture. Soft tissues: Unremarkable. IMPRESSION: Volar subluxation of the 4th digit middle phalanx in relation to the proximal phalanx. Dictated and Authenticated by: Tru Briceño MD. Ordering:RUSSELL Mejia MD
--- NOTE | 2021-10-10 15:35 | DI.VRAD_ITS ---
PROCEDURE INFORMATION: Exam: XR Right Hand Exam date and time: 10/10/2021 3:15 PM Age: 66 years old Clinical indication: Other: Post reduction TECHNIQUE: Imaging protocol: XR Right hand. Views: 3 or more views. COMPARISON: CR XR HAND RT COMPLETE 10/10/2021 2:41 PM FINDINGS: Bones/joints: The 4th digit appears anatomically aligned. No acute fracture. Soft tissues: Unremarkable. IMPRESSION: 4th digit now anatomically aligned. Dictated and Authenticated by: Tru Briceño MD. Ordering:RUSSELL Mejia MD
== END 2021-10-10 15:40 | disposition home or self-care (01) ==
PROVIDERS: Emergency Provider Physician Assistant; PCP Family Medicine
DX: S63.274A Dislocation of unspecified interphalangeal joint of right ring finger, initial encounter (principal); X50.1XXA Overexertion from prolonged static or awkward postures, initial encounter
CPT/HCPCS: 26770; 29130; 73130

== ENCOUNTER → 2021-10-15 09:55 | Outpatient (BNVA) | payer MEDICARE, SELFPAY | PROVIDERS: PCP Family Medicine; Referring Provider Student in an Organized Health Care Education/Training Program | DX: S63.284A Dislocation of proximal interphalangeal joint of right ring finger, initial encounter (principal); X58.XXXA Exposure to other specified factors, initial encounter | CPT/HCPCS: 99213 ==

== ENCOUNTER 2021-10-27 14:43 | Outpatient (CLI) | payer MEDICARE, SELFPAY ==
--- NOTE | 2021-10-27 14:45 | DI.RAD_ITS ---
Exam(s) XR FINGER RT RING EXAM: XR FINGER RT RING CLINICAL HISTORY: CLOSED DISLOCATION OF RIGHT RING FINGER. TECHNIQUE: 2D digital imaging was performed. COMPARISON: CR,XR XR HAND RT COMPLETE from 10/10/2021 CR,XR XR HAND RT COMPLETE from 10/10/2021 CR,XR XR HAND RT COMPLETE from 10/10/2021 CR,XR XR HAND RT COMPLETE from 10/10/2021 FINDINGS: Marked soft tissue swelling is is noted around the proximal interphalangeal joint. There is no evide nce of dislocation or subluxation. The there are mild degenerative changes at the distal interphalan geal joint. IMPRESSION: Soft tissue swelling. No evidence of acute fracture or dislocation. DATA REPOSITORY: RADIATION DOSE DELIVERED:
== END 2021-10-27 14:44 | disposition home or self-care (01) ==
PROVIDERS: PCP Family Medicine; Referring Provider Family Medicine; Visit Provider Physician Assistant
DX: S63.284A Dislocation of proximal interphalangeal joint of right ring finger, initial encounter; X58.XXXA Exposure to other specified factors, initial encounter
CPT/HCPCS: 99213; 73140

== ENCOUNTER 2021-11-23 08:19 | Outpatient (CLI) | payer MEDICARE, SELFPAY ==
--- NOTE | 2021-11-23 08:00 | DI.RAD_ITS ---
Exam(s) XR SHOULDER LT COMPLETE 2+V EXAM: XR SHOULDER LT COMPLETE 2+V CLINICAL HISTORY: shoulder pain. TECHNIQUE: 2D digital imaging was performed of the left shoulder. Two images were obtained. AP and axillary views were obtained. COMPARISON: No previous for comparison. FINDINGS: BONES: No acute fracture is present. No bony destructive lesion is seen. JOINTS: No dislocation present. Degenerative changes are seen at the acromioclavicular joint. SOFT TISSUE: Normal. Dystrophic calcifications are seen in the soft tissues around the humeral head a nd the AC joint. IMPRESSION: No acute abnormality. Degenerative changes around the left shoulder. Findings suggestive of a calci fic tendinitis. DATA REPOSITORY: RADIATION DOSE DELIVERED:
--- NOTE | 2021-11-23 08:00 | DI.RAD_ITS ---
Exam(s) XR SHOULDER RT COMPLETE 2+V EXAM: XR SHOULDER RT COMPLETE 2+V CLINICAL HISTORY: shoulder pain. TECHNIQUE: 2D digital imaging was performed of the right shoulder. Two images were obtained. AP an d axillary views were obtained. COMPARISON: CR RIGHT SHOULDER COMPLETE from 10/24/2009 FINDINGS: BONES: No acute fracture is present. No bony destructive lesion is seen. JOINTS: No dislocation present. Moderate degenerative changes are seen at the glenohumeral joint. Th e humeral head appears slightly high riding which may reflect rotator cuff tear. Please correlate cl inically. There are degenerative changes seen at the acromioclavicular joint. SOFT TISSUE: There do appear to be faint calcifications in the soft tissues adjacent to the greater t uberosity suggesting calcific tendinitis. IMPRESSION: 1. Degenerative changes in the right shoulder. 2. High-riding humeral head which can be seen with rotator cuff tear. Please correlate clinically. DATA REPOSITORY: RADIATION DOSE DELIVERED:
--- NOTE | 2021-11-23 08:15 | DI.RAD_ITS ---
Exam(s) XR FINGER RT RING EXAM: XR FINGER RT RING CLINICAL HISTORY: right ring finger dislcoation followup. TECHNIQUE: 2D digital imaging was performed of the right finger. Three views were obtained. PA/AP, oblique, and lateral views were obtained. COMPARISON: CR,XR XR HAND RT COMPLETE from 10/10/2021 CR XR FINGER RT RING from 10/27/2021 FINDINGS: BONES: No acute fracture is present. No bony destructive lesion is seen. JOINTS: No dislocation present. SOFT TISSUE: Diffuse soft tissue swelling. IMPRESSION: 1. No evidence of acute fracture, dislocation, or subluxation. 2. Diffuse soft tissue swelling of the ring finger. No radiopaque foreign bodies. DATA REPOSITORY: RADIATION DOSE DELIVERED:
== END 2021-11-23 08:20 | disposition home or self-care (01) ==
LOC: DIORS 08:19
PROVIDERS: PCP Family Medicine; Referring Provider Family Medicine; Visit Provider Student in an Organized Health Care Education/Training Program
DX: S63.254D Unspecified dislocation of right ring finger, subsequent encounter; M20.021 Boutonniere deformity of right finger(s); X58.XXXD Exposure to other specified factors, subsequent encounter; M25.511 Pain in right shoulder; M19.011 Primary osteoarthritis, right shoulder
CPT/HCPCS: 99213; 73030; 73140

== ENCOUNTER 2022-02-16 01:16 | Outpatient (CLI) | payer MEDICARE, SELFPAY ==
--- NOTE | 2022-02-16 07:45 | DI.MRI_ITS ---
Exam(s) MR BRAIN WO EXAM: MR BRAIN WO CLINICAL HISTORY: transient amnesia/memory changes,loss of smell,thyroid nodule,r43.0,r41.3 TECHNIQUE: Multiplanar multisequence MRI of the brain was performed. COMPARISON: No exams were available for comparison FINDINGS: The ventricular system is normal in appearance. No signal abnormality identified in the brain. The orbital and temporal bone structures appear intact as does the pituitary. Diffusion weighted imaging shows no evidence of infarction. Susceptibility weighted imaging shows no evidence of intracranial hemorrhage. There is normal flow void in the [place] vasculature. IMPRESSION: Normal brain MRI DATA REPOSITORY:
== END 2022-02-16 01:36 ==
PROVIDERS: PCP Family Medicine; Visit Provider Family Medicine
DX: R41.3 Other amnesia (principal); R43.0 Anosmia; E04.1 Nontoxic single thyroid nodule; I10 Essential (primary) hypertension
CPT/HCPCS: 70551

== ENCOUNTER → 2022-03-01 00:29 | Outpatient (CLI) | payer MEDICARE, SELFPAY ==
--- NOTE | 2022-03-01 13:35 | DI.CT_ITS ---
Exam(s) CT SINUS WO EXAM: CT SINUS WO CLINICAL HISTORY: post nasal drip; 2 yrs - no smell,anosmia,r43.0,r09.82. TECHNIQUE: Imaging Protocol: Axial computed tomography images with coronal and sagittal reformatted images were created and reviewed. No IV Contrast COMPARISON: No exams were available for comparison FINDINGS: MAXILLARY SINUSES: No significant mucosal thickening nor fluid levels. There is no evidence of bone dehiscence. OSTIOMEATAL UNITS: Patent bilaterally ETHMOIDAL AIR CELLS: Well aerated. No mucosal thickening nor fluid levels. SPHENOID SINUSES: Well aerated. No mucosal thickening nor fluid levels. FRONTAL SINUSES: Well aerated. No mucosal thickening nor fluid levels. NASAL SEPTUM AND TURBINATES:There is a prominent left-sided nasal septal spur. There is no evidence of ruthie bullosa. IMPRESSION: 1. No significant mucosal thickening or fluid levels in the paranasal sinuses. Both ostiomeatal uni ts are patent. 2. There is a prominent left-sided nasal septal spur noted. There is no evidence of ruthie bullosa aeration of the middle turbinates. RADIATION DOSE DELIVERED: 115.2mGy.cm Total DLP DATA REPOSITORY: All CT scans at this facility are submitted to the National Radiology Data Registry (NRDR) Dose Index Registry (DIR) with the [employer] (ACR). RADIATION OPTIMIZATION: All CT scans at this facility use at least one of these dose optimization te chniques: automated exposure control; mA and/or kV adjustment per patient size (includes targeted exa ms where dose is matched to clinical indication); or iterative reconstruction.
== END ==
PROVIDERS: PCP Family Medicine; Visit Provider Family Medicine
DX: R09.82 Postnasal drip (principal); R43.0 Anosmia; J34.89 Other specified disorders of nose and nasal sinuses
CPT/HCPCS: 70486

== ENCOUNTER 2022-03-04 02:17 | Outpatient (CLI) | payer MEDICARE, SELFPAY ==
[2022-03-04 12:22] LABS: HCT 44.6 % (40.0-50.0); HGB 14.8 g/dL (13.5-17.5); MCH 29.9 pg (27.0-33.0); MCHC 33.2 % (32.0-36.0); MCV 90 fL (80-95); MPV 9.9 fL (8.0-11.0); Platelet Count 252 10^3/uL (130-400); RBC 4.95 10^6/uL (4.36-5.78); RDW 12.9 % (11.8-14.1); RDW-SD 42.8 fL; WBC 5.75 10^3/uL (4.4-10.8)
[2022-03-04 12:30] LABS: ESR 6 mm/hr (0-20)
[2022-03-04 12:58] LABS: ALT 38 U/L (16-63); AST 22 U/L (15-37); Alkaline Phosphatase 71 U/L (46-116); BUN 17 mg/dL (7-18); Bilirubin, Total 0.3 mg/dL (0.2-1.0); Calcium 9.1 mg/dL (8.5-10.1); Chloride 105 mmol/L (98-107); Glucose 85 mg/dL (74-106); Potassium 4.2 mmol/L (3.5-5.1); Sodium 142 mmol/L (136-145); Total Protein 6.7 g/dL (6.4-8.2); Vitamin B12 450 pg/mL (193-986)
[2022-03-04 14:03] LABS: Hemoglobin A1C 5.7 % (<5.7)
[2022-03-07 05:24] LABS: Vitamin D 25 Total 36.7 ng/mL (30-100)
== END 2022-03-04 02:18 | disposition home or self-care (01) ==
LOC: LOS 02:17
PROVIDERS: PCP Family Medicine; Visit Provider Family Medicine
DX: E04.1 Nontoxic single thyroid nodule (principal); I10 Essential (primary) hypertension; R41.3 Other amnesia; R43.0 Anosmia; R47.02 Dysphasia; E11.9 Type 2 diabetes mellitus without complications; E55.9 Vitamin D deficiency, unspecified
CPT/HCPCS: 36415; 80053; 82306; 85027; 85652; 82607; 83036; 84443

== ENCOUNTER 2022-03-15 01:07 | Outpatient (CLI) | payer MEDICARE, SELFPAY ==
--- NOTE | 2022-03-15 07:30 | DI.US_ITS ---
Exam(s) US THYROID EXAM: US THYROID CLINICAL HISTORY: f/u thyroid nodule, e04.1. TECHNIQUE: Ultrasound thyroid performed using standard protocol. COMPARISON: US US THYROID from 01/08/2020 FINDINGS: Compared to the prior ultrasound of December 2019 there is again noted a single nodule which is in the r ight lobe. There also a few benign tiny colloid cysts in both lobes. The right thyroid nodule is discussed below: RIGHT THYROID LOBE: Measures 2 cm AP x 1.7 cm wide x 4.6 cm craniocaudal This is normal size. Nodule Size: Measures 1.1 cm wide x 0.8 cm AP x 1.4 cm craniocaudal. Composition: Predominately solid-2 points Echogenicity: Isoechoic to surrounding parenchyma-1 point Shape: Wider than taller in the transverse plane-0 points Margin: Smooth- 0 points Echogenic Foci: Subtle suggestion of a few punctate echogenic foci-3 points Total Points for this nodule: 6 ACR Ti-Rads Category: TR4 ISTHMUS: Thickened. No nodules. LEFT THYROID LOBE: Measures 1.6 cm AP x 1.7 wide x 4.7 cm craniocaudal. This is normal size. No significant nodules seen in the left lobe. LYMPH NODES: There is no significant adenopathy. IMPRESSION: 1. Both thyroid lobes as well as the isthmus exhibit normal size. There few benign colloid cysts not ed in both lobes. 2. There is a single solid nodule again noted in the right lobe with characteristics and measurements as above. This is graded as a TiRads 4 nodule. This can be followed as it is maximum size is less than 1.5 cm. Recommend repeat ultrasound in 1 year, earlier if a self detected changes noted by the patient. 3. There is no significant lymphadenopathy. DATA REPOSITORY:
== END 2022-03-15 01:27 ==
PROVIDERS: PCP Family Medicine; Visit Provider Family Medicine
DX: E04.1 Nontoxic single thyroid nodule (principal); E07.89 Other specified disorders of thyroid
CPT/HCPCS: 76536

== ENCOUNTER 2023-03-16 01:17 | Outpatient (CLI) | payer MEDICARE, SELFPAY ==
--- NOTE | 2023-03-16 08:00 | DI.RAD_ITS ---
Exam(s) XR HIP LT COMPLETE AP PELVIS EXAM: XR HIP LT COMPLETE AP PELVIS CLINICAL HISTORY: l hip pain after falling over a plank,m25.552. TECHNIQUE: 2D digital imaging was performed of the left hip. Two views were obtained. AP pelvis an d lateral left hip views were obtained. COMPARISON: CT CT CHEST/ABD/PEL W from 11/05/2018 FINDINGS: BONES: No acute fracture is present. No bony destructive lesion is seen. JOINTS: No dislocation present. There are mild degenerative changes of the left hip with joint space narrowing present. Degenerative changes are seen in the lower lumbar spine. SOFT TISSUE: There calcifications in the soft tissues lateral to the left hip which are unchanged com pared to the CT scan of the abdomen and pelvis from 11/05/2019. Atherosclerosis is present. IMPRESSION: No acute fracture or dislocation. DATA REPOSITORY: RADIATION DOSE DELIVERED:
--- NOTE | 2023-03-16 08:00 | DI.RAD_ITS ---
Exam(s) XR LUMBAR SPINE COMPLETE EXAM: XR LUMBAR SPINE COMPLETE CLINICAL HISTORY: fell on plank,acute bilat low back pain,m54.50. TECHNIQUE: 2D digital imaging was performed of the lumbar spine. Five images were obtained. AP, la teral, right oblique, left oblique and L5-S1 spot views were obtained. COMPARISON: No exams were available for comparison FINDINGS: BONES: No fracture or destructive lesion. Endplate osteophytes are seen throughout the lumbar spine. Multilevel degenerative changes of the facets are seen from L3-4 through L5-S1. DISKS: There is disc space narrowing from L2-3 through L5-S1. ALIGNMENT: There is a mild left convex curvature of the lower lumbar spine. No spondylolysis or spon dylolisthesis. SOFT TISSUE: Normal. IMPRESSION: Moderately severe degenerative changes in the lumbar spine. DATA REPOSITORY: RADIATION DOSE DELIVERED:
== END 2023-03-16 01:37 ==
PROVIDERS: PCP Family Medicine; Visit Provider Family Medicine
DX: M51.36 Other intervertebral disc degeneration, lumbar region (principal); W19.XXXA Unspecified fall, initial encounter; M54.50 Low back pain, unspecified
CPT/HCPCS: 72110; 73502

== ENCOUNTER 2023-04-06 01:19 | Outpatient (CLI) | payer MEDICARE, SELFPAY ==
--- NOTE | 2023-04-06 08:30 | DI.CT_ITS ---
Exam(s) CT BRAIN NECK CTA EXAM: CT BRAIN NECK CTA CLINICAL HISTORY: near syncope with head rotation,memory changes,dizzy,r42,r41.3,r44. TECHNIQUE: Imaging Protocol: Axial CT angiography was performed with multi-slice acquisition and mu lti-planar and/or 3D reconstructions. CONTRAST MATERIAL: Intravenous: Omnipaque 350 contrast volume:85 mL COMPARISON: CT CT CHEST/ABD/PEL W from 11/05/[address] SINUS WO from 03/01/2022 FINDINGS: CT Head W/O and W: Ventricles and Extra axial spaces: Normal in size and morphology for the patient's age. Hemorrhage: None. Cerebral parenchyma: There is no evidence of an acute territorial infarct. Midline shift: None. Brainstem/Cerebellum: Normal. Calvarium: Normal. Visualized Paranasal sinuses/Mastoids: Clear. Soft Tissues: Unremarkable. Enhancement: Unremarkable. CTA Neck W: Common Carotid: Right: No dissection, occlusion or significant stenosis. Left: No dissection, occlusion or significant stenosis. External Carotid: Right: No occlusion or significant stenosis. Left: No occlusion or significant stenosis. Internal Carotid: Right: No dissection, occlusion or significant stenosis. Minimal atherosclerosis at the origin. Left: No dissection, occlusion or significant stenosis. Vertebral Artery: Right: No dissection, occlusion or significant stenosis. Left: No dissection, occlusion or significant stenosis. Lung Apices: Normal. Bones: Within normal limits for the patient's age. Anterior cervical disc fusion is present. Soft Tissues: Normal. Thyroid gland: Unremarkable. CTA Brain W: Internal Carotid Arteries: Normal. No aneurysm, occlusion or significant stenosis. Anterior Cerebral Arteries: Right: No aneurysm, occlusion or significant stenosis. Left: No aneurysm, occlusion or significant stenosis. Middle Cerebral Arteries: Right: No aneurysm, occlusion or significant stenosis. Left: No aneurysm, occlusion or significant stenosis. Posterior Cerebral Arteries: Right: No aneurysm, occlusion or significant stenosis. Left: No aneurysm, occlusion or significant stenosis. Vertebral Arteries: Right: No aneurysm, occlusion or significant stenosis. Left: No aneurysm, occlusion or significant stenosis. Basilar Artery: No aneurysm, occlusion or significant stenosis. IMPRESSION: 1. No large vessel occlusion or significant stenosis on the CT angiography of the head. 2. No acute intracranial process. 3. No occlusion or significant stenosis on the CT angiography of the neck. RADIATION DOSE DELIVERED: 2,274.85mGy.cm Total DLP DATA REPOSITORY: All CT scans at this facility are submitted to the National Radiology Data Registry (NRDR) Dose Index Registry (DIR) with the [employer] (A[employer]). RADIATION OPTIMIZATION: All CT scans at this facility use at least one of these dose optimization te chniques: automated exposure control; mA and/or kV adjustment per patient size (includes targeted exa ms where dose is matched to clinical indication); or iterative reconstruction.
[2023-04-06 13:46] LABS: HGB 15.1 g/dL (13.5-17.5); MCH 29.7 pg (27.0-33.0); MCHC 33.6 % (32.0-36.0); MCV 89 fL (80-95); Platelet Count 294 10^3/uL (130-400); RBC 5.08 10^6/uL (4.36-5.78); RDW 12.5 % (11.8-14.1); WBC 8.38 10^3/uL (4.4-10.8)
[2023-04-06 14:27] LABS: ALT 44 U/L (16-63); AST 28 U/L (15-37); Alkaline Phosphatase 69 U/L (46-116); Anion Gap 8.3 mmol/L (3-11); BUN 21 mg/dL (7-18); Bilirubin, Total 0.4 mg/dL (0.2-1.0); CO2 26.7 mmol/L (21.0-32.0); CREATININE 1.1 mg/dL (0.70-1.30); Calcium 9.2 mg/dL (8.5-10.1); Calculated LDL 110 mg/dL (<100); Chloride 105 mmol/L (98-107); Cholesterol 190 mg/dL (<200); Estimated GFR 72.67 (mL/min/1.73m2); Glucose 106 mg/dL (74-106); HDL Cholesterol 64 mg/dL (40-60); Potassium 4.6 mmol/L (3.5-5.1); Sodium 140 mmol/L (136-145); TSH (W/Ref FT4) 2.09 uIU/mL (0.36-3.74); Total Protein 7.3 g/dL (6.4-8.2); Triglyceride 81 mg/dL (<150); Vitamin B12 550 pg/mL (193-986)
[2023-04-06] MEDS: Omnipaque 350 MG/ML 100 ML BTL IJ (15:16)
[2023-04-06] MEDS: Normal Saline - Diluent 50 ML VIAL IJ (15:17)
[2023-04-07 21:31] LABS: PSA, Diagnostic 4.6 ng/mL (<=4.5)
== END 2023-04-06 01:39 ==
LOC: DI 01:19
PROVIDERS: PCP Family Medicine; Visit Provider Family Medicine
DX: R55 Syncope and collapse (principal); R41.3 Other amnesia
CPT/HCPCS: 70496; 70498; 80053; 80061; 85027; 82607; 84153; 84443; J3490

== ENCOUNTER 2023-04-07 00:07 | Outpatient (CLI) | payer MEDICARE, SELFPAY ==
--- NOTE | 2023-04-07 07:45 | DI.MRI_ITS ---
Exam(s) MR BRAIN WO EXAM: MR BRAIN WO CLINICAL HISTORY: recent syncope and memory change,STROKE,TRANSIENT AMNESIA,R41.3,I63.9 TECHNIQUE: Multiplanar multisequence MRI of the brain was performed. COMPARISON: MR MR BRAIN WO from 02/16/2022 FINDINGS: The examination is limited due to patient motion artifact. VENTRICLES AND EXTRA AXIAL SPACES: Normal in size and morphology for the patient's age. MIDLINE SHIFT: None. CEREBRAL PARENCHYMA: No focus of restricted diffusion to suggest acute infarct. No space-occupying le heena identified. HEMORRHAGE: None. BRAINSTEM/CEREBELLUM: Normal. CALVARIUM: Normal. VISUALIZED PARANASAL SINUSES/MASTOIDS:Clear. BLACKFEET OF VENTURA: Normal flow void. PITUITARY GLAND: Unremarkable. OTHER FINDINGS: None. IMPRESSION: Unremarkable MRI of the brain. DATA REPOSITORY:
== END 2023-04-07 00:27 ==
LOC: DI 00:07
PROVIDERS: PCP Family Medicine; Visit Provider Family Medicine
DX: I63.9 Cerebral infarction, unspecified (principal); R41.3 Other amnesia
CPT/HCPCS: 70551

== ENCOUNTER 2023-04-13 10:29 | Outpatient (RCR) | payer MEDICARE, SELFPAY ==
--- NOTE | 2023-04-13 10:30 | HOLTER_ITS ---
APPROVED REPORT Conclusion This is a 48-hour Holter monitor Rhythm throughout was sinus with an average heart rate of 59. Minimum was 46, maximum 95 There were very rare isolated ventricular ectopic beats There was one self-limited atrial run, 5 beats in duration There was no atrial fibrillation no high-grade AV block no pauses greater than 3 seconds Patient reported symptoms corresponded to an isolated PVC
== END 2023-04-28 23:59 | disposition home or self-care (01) ==
LOC: CARDOPNVT 10:29
PROVIDERS: PCP Family Medicine; Visit Provider Family Medicine
DX: R55 Syncope and collapse (principal); I49.3 Ventricular premature depolarization
CPT/HCPCS: 93227; 93246; 93225

== ENCOUNTER 2023-05-11 01:08 | Outpatient (CLI) | payer MEDICARE, SELFPAY ==
--- NOTE | 2023-05-11 08:15 | DI.US_ITS ---
Exam(s) US THYROID EXAM: US THYROID CLINICAL HISTORY: thyroid mass, see us 2021,e07.9. TECHNIQUE: Ultrasound thyroid performed using standard protocol. COMPARISON: US US THYROID from 03/15/2022 FINDINGS: Compared to prior ultrasound examination February 2022 there is again noted a single nodule in the right l obe as well as a small colloid cyst in the left lobe. Thyroid gland size is normal. The right thyro id lobe nodules described below. The left thyroid lobe contains a small colloid cyst which is a corina gn finding. RIGHT THYROID LOBE: Measures 1.5 cm AP x 1.5 cm wide x 4.7 cm craniocaudal Right nodule size: Measures 1.4 x 0.9 x 0.9 cm cm Composition: Mixed solid-cystic= 1 point Echogenicity: Slightly hypoechoic compared to surrounding tissue-2 points Shape: Wider than taller-0 points Margin: [id number]-[id number]-5 points Echogenic Foci: Punctate echogenic foci-3 points Total Points for this nodule: 6 ACR Ti-Rads Category: TR4 This TR4 nodule presently does not require FNA as it measures a less than 1.5 cm. ISTHMUS: Normal thickness. There are no nodules in the isthmus. LEFT THYROID LOBE: Measures 1.4 cm AP x 1.7 wide x 4.3 cm craniocaudal Small colloid cysts but no significant nodules. LYMPH NODES: There is no significant adenopathy. IMPRESSION: 1. Single right lobe TR4 nodule which can be followed conservatively. Recommend repeat ultrasound in 1 year, earlier if clinically indicated. 2. There is no significant lymphadenopathy. DATA REPOSITORY:
== END 2023-05-11 01:28 ==
LOC: DI 01:09
PROVIDERS: PCP Family Medicine; Visit Provider Family Medicine
DX: E04.1 Nontoxic single thyroid nodule (principal)
CPT/HCPCS: 76536

== ENCOUNTER → 2023-06-12 02:13 | Outpatient (CLI) | payer MEDICARE, SELFPAY ==
--- NOTE | 2023-06-12 08:00 | DI.US_ITS ---
APPROVED REPORT EXAM: Comprehensive 2D, Doppler, and color-flow Echocardiogram Patient Location: Out-Patient Flame Burner: Darrius Ennis RDCS Indications: syncope, HTN, memory changes, bicuspid AOV Other Information Study Quality: Adequate Conclusion Borderline dilated left ventricle. Normal left ventricular wall thickness. Ejection fraction is 55% . There are no segmental wall motion abnormalities Normal right ventricular size and systolic function Both atria are normal in size Aortic valve is bicuspid. There is no aortic stenosis. There is trace aortic regurgitation Normal mitral valve with trace regurgitation Mildly dilated aortic root. Ascending aorta is normal in size Wall motion Left Ventricle The left ventricle is borderline dilated Left ventricular systolic function is normal There is normal left ventricular wall thickness. There are no segmental wall motion abnormalities There is no ventri cular septal defect visualized. LVEF is 55% Right Ventricle The right ventricle is normal size. The right ventricular systolic function is normal.Unable to asses s PA pressure. Atria The left atrium size is normal. The right atrium size is normal. The interatrial septum is intact wit h no evidence for an atrial septal defect. Aortic Valve Aortic valve is bicuspid. There is no aortic valvular stenosis. Trace aortic regurgitation. Mitral Valve The mitral valve is normal in structure. No evidence of mitral valve stenosis. Trace mitral regurgita tion. Tricuspid Valve The tricuspid valve is normal in structure. There is no tricuspid valve stenosis. There is no tricusp id valve regurgitation noted. Pulmonic Valve The pulmonary valve is normal in structure. There is no pulmonic valvular stenosis. Trivial pulmonic regurgitation. Great Vessels The aortic root is mildly dilated The ascending aorta is normal in size. Aortic arch is not well visu alized. IVC is normal in size and collapses >50% with inspiration. Pericardium There is no pericardial effusion. 2D Dimensions IVSD d PLAX 0.92 cm M: 0.6-1.2 LVPW d PLAX 0.81 cm M: 0.6 - 1.2 LVID d PLAX 5.88 cm M: 4.2 - 5.8 LVDs 4.30 cm M: 2.5 - 4.0 Ao Root d 4.14 cm M: 3.1 - 3.7 Ao Asc Diam d 3.28 cm M: 2.6 - 3.4 LV EF Teichholz 51.4 % FS 26.70 % M-Mode TAPSE 2.55 cm (M/F) >1.7 LV Diastology MV E' medial 0.092 (>0.07 m/s) E/A Ratio 1.0 LV E/e MED 6.38 (<14) MV E Vmax 0.59 (0.4-1.3 m/s) MV E' lateral 0.077 (>0.1 m/s) MV A Vmax 0.60 (0.4-1.3 m/s) LV E/e LAT 7.68 (<14) MV E/E' medial 6.38 MV E/E' lateral 7.68 MV (E/E' average) 6.97 Aortic Valve LVOT Vmax 0.94 m/s AoV Area Vmax 2.31 cm2 LVOT Peak Grad 3.5 mmHg LVOT Mean Grad 2.0 mmHg LVOT Diam s 2.40 cm AoV Peak Grad 14.0 mmHg LVOT SV 113.71 mL AoV Mean Grad 7.4 mmHg AoV Area VTI 2.46 cm2 Mitral Valve MV DT 248 (160-240 msec) Pulmonary Valve PV Mean Grad 1.3 mmHg RVOT Peak Gr. 1.96 mmHg RVOT Mean Gr. 1.25 mmHg RVOT VTI 0.182 m RVOT Vmax 0.70 m/s
== END ==
PROVIDERS: PCP Family Medicine; Visit Provider Family Medicine
DX: I10 Essential (primary) hypertension (principal); R41.3 Other amnesia; R55 Syncope and collapse
CPT/HCPCS: 93306

== ENCOUNTER → 2023-07-18 13:35 | Outpatient (BNVA) | payer MEDICARE, SELFPAY | PROVIDERS: PCP Family Medicine; Referring Provider Family Medicine; Visit Provider Psychiatry & Neurology Neurology | DX: R41.3 Other amnesia (principal); F41.8 Other specified anxiety disorders; I10 Essential (primary) hypertension; R55 Syncope and collapse; H53.9 Unspecified visual disturbance; R40.4 Transient alteration of awareness; R25.2 Cramp and spasm | CPT/HCPCS: 99215; G2212 ==

== ENCOUNTER → 2023-08-29 12:17 | Outpatient (BNVA) | payer MEDICARE, SELFPAY | PROVIDERS: PCP Family Medicine; Referring Provider Family Medicine; Visit Provider Psychiatry & Neurology Neurology | DX: R41.3 Other amnesia (principal); F41.8 Other specified anxiety disorders; I10 Essential (primary) hypertension; R55 Syncope and collapse; H53.9 Unspecified visual disturbance; R40.4 Transient alteration of awareness; R25.2 Cramp and spasm | CPT/HCPCS: 99214 ==

== ENCOUNTER → 2023-11-27 10:58 | Outpatient (BNVA) | payer MEDICARE, SELFPAY | PROVIDERS: PCP Family Medicine; Referring Provider Family Medicine; Visit Provider Psychiatry & Neurology Neurology | DX: R42 Dizziness and giddiness (principal); R41.3 Other amnesia; I10 Essential (primary) hypertension; F41.8 Other specified anxiety disorders; R55 Syncope and collapse; H53.9 Unspecified visual disturbance; R40.4 Transient alteration of awareness; R25.2 Cramp and spasm | CPT/HCPCS: 99215 ==

== ENCOUNTER 2024-02-13 11:05 | Outpatient (CLI) | payer MEDICARE, SELFPAY ==
[2024-02-13 13:54] LABS: ALT 70 U/L (16-63); AST 36 U/L (15-37); Albumin 3.9 g/dL (3.4-5.0); Alkaline Phosphatase 77 U/L (46-116); Anion Gap 10.5 mmol/L (3-11); BUN 13 mg/dL (7-18); Bilirubin, Total 0.4 mg/dL (0.2-1.0); CO2 25.5 mmol/L (21.0-32.0); Calcium 9.1 mg/dL (8.5-10.1); Chloride 107 mmol/L (98-107); Estimated GFR 80.97 (mL/min/1.73m2); Glucose 99 mg/dL (74-106); Potassium 3.7 mmol/L (3.5-5.1); Sodium 143 mmol/L (136-145); Total Protein 7.2 g/dL (6.4-8.2)
== END 2024-02-13 11:06 | disposition home or self-care (01) ==
LOC: LOS 11:05
PROVIDERS: PCP Family Medicine; Referring Provider Family Medicine; Visit Provider Family Medicine
DX: I10 Essential (primary) hypertension (principal)
CPT/HCPCS: 36415; 80053

== ENCOUNTER → 2024-02-26 09:14 | Outpatient (BNVA) | payer MEDICARE, SELFPAY | PROVIDERS: PCP Family Medicine; Visit Provider Psychiatry & Neurology Neurology | DX: R41.3 Other amnesia (principal); I10 Essential (primary) hypertension; F41.8 Other specified anxiety disorders; R55 Syncope and collapse; R40.4 Transient alteration of awareness; R25.2 Cramp and spasm; R42 Dizziness and giddiness | CPT/HCPCS: 99214 ==

== ENCOUNTER → 2024-08-26 09:06 | Outpatient (BNVA) | payer MEDICARE, SELFPAY | PROVIDERS: PCP Family Medicine; Visit Provider Psychiatry & Neurology Neurology | DX: R41.3 Other amnesia (principal); I10 Essential (primary) hypertension; F41.8 Other specified anxiety disorders; R55 Syncope and collapse; H53.9 Unspecified visual disturbance; R40.4 Transient alteration of awareness; R25.2 Cramp and spasm; R42 Dizziness and giddiness | CPT/HCPCS: 99214 ==